=== PATIENT | male | born 1975 | race Caucasian/White ===

== ENCOUNTER 2022-03-27 22:01 | Emergency (ER) | payer OTHER, BC ==
[~2022-03-27 22:01] MED LIST: Iopamidol 370 76% 100 ML VIAL ONE
[2022-03-27] MEDS ORDERED: Ondansetron PF 4 MG/2 ML Vial ONE (22:35)
[2022-03-27] MEDS ORDERED: Morphine 4 MG/ML VIAL ONE (22:35)
[2022-03-27] MEDS ORDERED: Sodium Chloride 0.9% 1,000 ML ONE (22:35)
[2022-03-27 22:36] LABS: #Basophils 0.1 thou/uL (0.0-0.2); #Lymphocytes 1.6 thou/uL (1.20-3.40); #Monocytes 0.6 thou/uL (0.11-0.59); %Basophils 0.6 % (0.0-1.0); %Eosinophils 0.2 % (0.0-10.0); %Lymphocytes 8.8 % (21.0-51.0); %Monocytes 3.5 % (0.0-10.0); %Neutrophils 86.9 % (42.0-75.0); Hemoglobin 13.4 g/dL (14.0-18.0); Mean Corpuscular HGB CONC 31.9 g/dL (32.0-36.0); Mean Corpuscular Hemoglobin 25.9 pg (27.0-31.0); Mean Platelet Volume 9.4 fL (7.4-10.4); Platelet Count 352 thou/uL (130-400); Red Blood Cell (RBC) Count 5.18 mill/uL (4.70-6.10); White Blood Cell (WBC) Count 18.4 thou/uL (4.8-10.8)
[2022-03-27 22:52] LABS: PTT 34.8 sec (22.9-36.1)
[2022-03-27 23:07] LABS: ALT (SGPT) 20 U/L (8-55); AST (SGOT) 26 U/L (5-34); Albumin 3.8 g/dL (3.5-5.0); Alkaline Phosphatase 84 U/L (40-110); Anion Gap 17 mmol/L (10-20); BUN (Urea Nitrogen) 12 mg/dL (8.9-20.6); Bilirubin, Total 0.4 mg/dL (0.2-1.2); Calc. Creatinine Clearance 0 mL/min (70-130); Calcium 9.1 mg/dL (7.8-10.44); Carbon Dioxide 26 mmol/L (22-29); Chloride 100 mmol/L (98-107); Globulin 3.7 g/dL (2.4-3.5); Glucose 120 mg/dL (70-105); Potassium 3.7 mmol/L (3.5-5.1); Protein, Total 7.5 g/dL (6.0-8.3); Sodium 139 mmol/L (136-145)
[2022-03-27] MEDS ORDERED: HYDROcodone/Acetaminophen 5/325 mg Tablet ONE (23:52)
== END 2022-03-28 | disposition home or self-care (01) ==
LOC: MADERS 22:01
DX: S22.22XA Fracture of body of sternum, initial encounter for closed fracture (principal); E11.9 Type 2 diabetes mellitus without complications; V89.2XXA Person injured in unspecified motor-vehicle accident, traffic, initial encounter
CPT/HCPCS: 71260; 74177; 80053; 85025; 85610; 85730; 93005; 96374; 96375; J2270; J2405; J7050; Q9967